=== PATIENT | male | born 1980 | race Caucasian/White ===

== ENCOUNTER → 2018-05-12 | Emergency (ER) | payer BC ==
[~2018-05-12] MED LIST: HYDR-385 PO
[2018-05-12] MEDS: NS(*) 0.9% 1000 ML BAG 1,000 ML IV ONE (12:54)
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
[2018-05-12] MEDS: fentaNYL CITR 100 MCG/2 ML AMP IVP ONE (12:55)
[2018-05-12] MEDS: HYDROMORPHONE HCL 1 MG/ML SYRINGE IVP ONE (13:11)
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
[2018-05-12] MEDS: KETAMINE HCL 500 MG/5 ML VIAL IVP ONE (14:42)
[2018-05-12] MEDS: PROPOFOL EMUL 10MG/ML 20 ML VL IVP ONE (14:42)
[2018-05-12 15:20] VITALS: BP 138/88
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
--- NOTE | 2018-05-12 15:49 | RADIOLOGY IMAGING REPORT ---
FACILITY: [facility] [place] PATIENT NAME: Supa Ledesma : 1980 MR: [id number] V: [id number] EXAM DATE: [id number] ORDERING PHYSICIAN: EZEKIEL MATSON TECHNOLOGIST: Location: [facility] [place] Patient: Supa Ledesma : 1980 Visit/Account:[id number] Date of Sevice: 05/12/2018 INDICATION: . Post reduction DATE: 05/12/2018 3:43 PM. TECHNIQUE: SHOULDER 1 VIEW LEFT COMPARISON: Prereduction radiographs FINDINGS: The humeral head is now appropriately aligned at the glenoid. There is a reverse Hill-Sach s deformity of the humeral head. IMPRESSION: Successful reduction. Report Dictated By: Russel Lo MD at 05/12/2018 3:43 PM Report E-Signed By: Russel Lo MD at 05/12/2018 3:44 PM WSN:[email or web address]
== END ==
LOC: ER 13:25
DX: S43.005A Unspecified dislocation of left shoulder joint, initial encounter (principal); V86.52XA Driver of snowmobile injured in nontraffic accident, initial encounter
CPT/HCPCS: 23650; 73000; 73020; 73030; 96361; 96374; 96375; 99152; 99285; A4565; J1170; J2704; J3010; J7030